=== PATIENT | male | born 1930 | race Caucasian/White ===

== ENCOUNTER 2017-07-17 10:42 | Outpatient (CLI) | payer MEDICARE, BC ==
[~2017-07-17 10:42] MED LIST: ASPI-992 PO; CHOL20006 PO; FINA5TAB11 PO; FURO40TA5 PO; GINK120C PO; MULT-479 PO; PANT40TA4 PO; RIVA10TA PO; SIMV40TA5 PO; VALS80TA2 PO
[2017-07-17 11:43] LABS: ALANINE AMINOTRANSFERASE 38 U/L (12-78); ALBUMIN 3.9 g/dL (3.4-5.0); ALKALINE PHOSPHATASE 142 U/L (46-116); ASPARTATE AMINOTRANSFERASE 28 U/L (15-37); BILIRUBIN,TOTAL 1.1 mg/dL (0.2-1.0); CARBON DIOXIDE 30 mmol/L (21-32); CHLORIDE 103 mmol/L (98-107); CREATININE 1.4 mg/dL (0.6-1.3); GLUCOSE 129 mg/dL (74-106); MAGNESIUM 2.1 mg/dL (1.8-2.4); POTASSIUM 4.2 mmol/L (3.5-5.1); SODIUM SERUM 142 mmol/L (136-145); UREA NITROGEN, BLOOD 32 mg/dL (7-18)
== END 2017-07-18 23:59 | disposition home or self-care (01) ==
LOC: LAB 10:42
PROVIDERS: ATTEND Internal Medicine Interventional Cardiology
DX: I51.7 Cardiomegaly (principal); I10 Essential (primary) hypertension; J98.6 Disorders of diaphragm; I48.91 Unspecified atrial fibrillation
CPT/HCPCS: 36415; 71020-TC; 80053-TC; 83735-TC